=== PATIENT | female | born 1970 | race Caucasian/White ===

== ENCOUNTER 2018-02-14 11:06 | Day surgery (SDC) | payer OTHER ==
[2018-02-12 12:35] LABS: Urine Bacteria NONE SEEN /hpf (None Seen); Urine Blood 1+ /uL (Negative); Urine Mucus FEW (None Seen); Urine Specific Gravity 1.025 (1.001-1.035); Urine WBC 2 /hpf (0 - 5)
[2018-02-12 12:39] LABS: Basophils # (auto) 0 uL; Basophils % (auto) 0.3 % (0.0-2.0); Eosinophils # (auto) 0.1 uL; Eosinophils % (auto) 1.2 % (0.0-7.0); Hematocrit 40.7 % (36.0-46.0); Hemoglobin 13.7 g/dL (12.2-16.2); Lymphocytes # (auto) 1.3 uL; Lymphocytes % (auto) 15.1 % (10.0-50.0); Mean Corpuscular Hemoglobin 30.2 pg (28.0-32.0); Mean Corpuscular Hgb Conc. 33.5 g/dL (32.0-36.0); Mean Corpuscular Volume 90.1 fL (80.0-100.0); Monocytes # (auto) 0.7 uL; Neutrophils # (auto) 6.4 uL; Neutrophils % (auto) 75.4 % (37.0-80.0); Platelet Count (auto) 212 10^3/uL (140-450); Red Blood Cells 4.52 10^6/uL (4.0-5.20); Red Cell Distribution Width 11.9 % (11.8-14.3); White Blood Cell 8.5 10^3/uL (4.4-10.8)
[2018-02-12 12:47] LABS: Albumin 3.6 g/dL (3.4-5.0); BUN/Creatinine Ratio 13.2; Bilirubin, Total 0.4 mg/dL (0.2-1.0); Calcium 8.8 mg/dL (8.5-10.1); Potassium 3.6 mmol/L (3.5-5.1)
[2018-02-12 13:02] LABS: INR 0.93 (0.9-1.15); Partial Thromboplastin Time 27.4 sec (22.64-33.71); Prothrombin Time 10.1 sec (9.37-12.3)
[~2018-02-14] VITALS: Ht 162.6 cm; Wt 78.9 kg
[~2018-02-14 11:06] MED LIST: ASPI81TA27 PO; METF-489 PO
[2018-02-14] MEDS ORDERED: ceFAZolin 1GM/50ML 50 ML IV ONE (11:17)
[2018-02-14] MEDS ORDERED: fentaNYL CITRATE 100 MCG/2 ML VL ONE ×3 (13:30→14:00)
[2018-02-14] MEDS ORDERED: MIDAZOLAM HCL 1MG/1ML-2 ML VIAL ONE ×2 (13:30→13:40)
[2018-02-14] MEDS ORDERED: PROPOFOL 10 MG/ML 20 ML IV ONE (13:39)
[2018-02-14] MEDS ORDERED: hydrALAZINE HCL 20 MG/ML VL IV PRN (14:30)
[2018-02-14] MEDS ORDERED: ONDANSETRON HCL 4 MG/2 ML VIAL IV ONE (14:30)
[2018-02-14] MEDS ORDERED: ePHEDrine SULFATE 50 MG/ML AMP IV PRN (14:30)
[2018-02-14 14:50] VITALS: BP 139/79
[2018-02-14] MEDS ORDERED: fentaNYL CITRATE 100 MCG/2 ML VL IV ONE (15:00)
== END 2018-02-14 15:20 | disposition home or self-care (01) ==
LOC: SUR 11:06
PROVIDERS: ATTEND Podiatrist Foot & Ankle Surgery
DX: M92.61 Juvenile osteochondrosis of tarsus, right ankle (principal); Z90.710 Acquired absence of both cervix and uterus; E11.9 Type 2 diabetes mellitus without complications; E66.9 Obesity, unspecified; Z88.5 Allergy status to narcotic agent; Z88.2 Allergy status to sulfonamides
CPT/HCPCS: 28118; 36415; 80053; 81001; 82962; 85025; 85610; 85730; J0690; J2250; J2704; J3010; Q4137